=== PATIENT | female | born 1950 | race Caucasian/White ===

== ENCOUNTER 2016-04-12 08:00 | Outpatient (CLI) | payer MEDICARE, OTHER | END 2016-04-12 08:01 | disposition home or self-care (01) | DX: N76.0 Acute vaginitis (principal) ==

== ENCOUNTER 2016-04-23 14:10 | Outpatient (CLI) | payer MEDICARE, OTHER | END 2016-04-23 14:11 | disposition home or self-care (01) | DX: Z12.31 Encounter for screening mammogram for malignant neoplasm of breast (principal) ==

== ENCOUNTER 2016-06-26 16:33 | Outpatient (CLI) | payer MEDICARE, OTHER | END 2016-06-26 16:34 | disposition home or self-care (01) | DX: R29.898 Other symptoms and signs involving the musculoskeletal system (principal) ==

== ENCOUNTER 2016-07-03 08:36 | Outpatient (CLI) | payer MEDICARE, OTHER ==
[2016-07-03] MEDS ORDERED: GADOBUTROL 7.5 MMOL/7.5 ML VIAL IVP ONE (10:11)
== END 2016-07-03 08:37 | disposition home or self-care (01) ==
DX: R29.898 Other symptoms and signs involving the musculoskeletal system (principal); F03.90 Unspecified dementia, unspecified severity, without behavioral disturbance, psychotic disturbance, mood disturbance, and anxiety; G31.9 Degenerative disease of nervous system, unspecified; R90.82 White matter disease, unspecified
CPT/HCPCS: 70553; A9585

== ENCOUNTER 2016-08-21 14:41 | Outpatient (CLI) | payer MEDICARE, OTHER | END 2016-08-21 14:42 | disposition home or self-care (01) | LOC: SC 14:41 | PROVIDERS: ATTEND Nurse Practitioner Family | DX: G47.33 Obstructive sleep apnea (adult) (pediatric) (principal) | CPT/HCPCS: 99213; G0463; 99212 ==

== ENCOUNTER 2016-09-06 09:30 | Outpatient (CLI) | payer MEDICARE, OTHER | END 2016-09-06 09:31 | disposition home or self-care (01) | LOC: LAB.WCP 09:30 | PROVIDERS: ATTEND Family Medicine | DX: N39.0 Urinary tract infection, site not specified (principal) | CPT/HCPCS: 87077; 87086 ==

== ENCOUNTER 2017-02-25 16:20 | Outpatient (CLI) | payer MEDICARE, OTHER | END 2017-02-25 16:21 | disposition home or self-care (01) | LOC: LAB.R 16:20 | PROVIDERS: ATTEND Physician Assistant Medical | DX: N39.0 Urinary tract infection, site not specified (principal) | CPT/HCPCS: 87086 ==

== ENCOUNTER 2017-08-20 09:44 | Outpatient (CLI) | payer MEDICARE, OTHER | END 2017-08-20 09:45 | disposition home or self-care (01) | LOC: SC 09:44 | PROVIDERS: ATTEND Nurse Practitioner Family | DX: G47.33 Obstructive sleep apnea (adult) (pediatric) (principal); G30.9 Alzheimer's disease, unspecified; F02.80 Dementia in other diseases classified elsewhere, unspecified severity, without behavioral disturbance, psychotic disturbance, mood disturbance, and anxiety | CPT/HCPCS: 99213; G0463; 99212 ==

== ENCOUNTER 2018-05-20 09:50 | Outpatient (CLI) | payer MEDICARE, OTHER ==
[2018-05-20 13:00] LABS: BASOPHILS # (AUTO) 0.1 10^3/uL (0.0-0.1); BASOPHILS % (AUTO) 1.6 %; EOSINOPHILS # (AUTO) 0.4 10^3/uL (0.0-0.7); EOSINOPHILS % (AUTO) 6.5 %; HGB - HEMOGLOBIN 12.6 g/dL (12.0-16.0); LYMPHOCYTES # (AUTO) 1.8 10^3/uL (1.5-3.5); LYMPHOCYTES % (AUTO) 30.5 %; MEAN CORPUSCULAR HEMOGLOBIN 32.3 pg (27.0-31.0); MEAN CORPUSCULAR HGB CONC 34.1 g/dL (32.0-36.0); MEAN CORPUSCULAR VOLUME 94.7 fL (81.0-99.0); MEAN PLATELET VOLUME 8.3 fL (7.9-10.8); MONOCYTES # (AUTO) 0.5 10^3/uL (0.0-1.0); MONOCYTES % (AUTO) 8.7 %; NEUTROPHILS # (AUTO) 3.2 10^3/uL (1.5-6.6); NEUTROPHILS % (AUTO) 52.7 %; PLT - PLATELET COUNT 257 10^3/uL (130-450); RED BLOOD COUNT 3.91 10^6/uL (4.20-5.40); RED CELL DISTRIBUTION WIDTH 13.9 % (12.0-15.0)
[2018-05-20 13:28] LABS: ALBUMIN 3.8 g/dL (3.2-5.5); ALBUMIN/GLOBULIN RATIO 1.4 (1.0-2.2); ALKALINE PHOSPHATASE 59 IU/L (42-121); ALT ALANINE AMINOTRANSFERASE 17 IU/L (10-60); AST ASPARTATE AMINOTRANSFERASE 17 IU/L (10-42); BILIRUBIN,TOTAL 1.3 mg/dL (0.2-1.0); BUN - BLOOD UREA NITROGEN 18 mg/dL (6-20); CALCIUM 9.5 mg/dL (8.5-10.3); CARBON DIOXIDE - CO2 28 mmol/L (21-32); CHLORIDE 105 mmol/L (101-111); CHOL/HDL RATIO 2.8 (<4.4); CHOLESTEROL 173 mg/dL; CREATININE 0.8 mg/dL (0.4-1.0); GFR - MDRD 72 (>89); GLUCOSE 93 mg/dL (70-100); HDL CHOLESTEROL 61 mg/dL; LDL CHOLESTEROL,CALCULATED 95 mg/dL; LDL/HDL RATIO 1.6 (<4.4); SODIUM 141 mmol/L (135-145); TOTAL PROTEIN 6.6 g/dL (6.7-8.2); VLDL CHOLESTEROL 17 mg/dL
== END 2018-05-20 09:51 | disposition home or self-care (01) ==
LOC: LAB.WCP 09:50
PROVIDERS: ATTEND Physician Assistant Medical
DX: I10 Essential (primary) hypertension (principal); E78.5 Hyperlipidemia, unspecified; R25.2 Cramp and spasm
CPT/HCPCS: 36415; 80053; 80061; 83721; 84443; 85025

== ENCOUNTER 2018-06-19 08:00 | Outpatient (CLI) | payer MEDICARE, OTHER ==
[2018-06-19 19:32] LABS: CREATININE 1.1 mg/dL (0.4-1.0)
== END 2018-06-19 23:59 | disposition home or self-care (01) ==
LOC: LAB.WCP 08:00
PROVIDERS: ATTEND Physician Assistant Medical
DX: E87.6 Hypokalemia (principal)
CPT/HCPCS: 36415; 80048

== ENCOUNTER 2018-09-09 08:00 | Outpatient (CLI) | payer MEDICARE, OTHER | END 2018-09-09 08:01 | disposition home or self-care (01) | LOC: LAB.WCP 08:00 | PROVIDERS: ATTEND Physician Assistant Medical | DX: N39.0 Urinary tract infection, site not specified (principal) | CPT/HCPCS: 87086; 87181 ==

== ENCOUNTER 2018-12-02 08:00 | Outpatient (CLI) | payer MEDICARE, OTHER | END 2018-12-02 08:01 | disposition home or self-care (01) | LOC: LAB.WCP 08:00 | PROVIDERS: ATTEND Physician Assistant Medical | DX: N39.0 Urinary tract infection, site not specified (principal) | CPT/HCPCS: 87077; 87086; 87181 ==

== ENCOUNTER 2019-06-13 00:26 | Outpatient (CLI) | payer MEDICARE, OTHER | END 2019-06-13 00:27 | disposition E | LOC: EMS 00:26 | PROVIDERS: ATTEND Surgery ==